=== PATIENT | female | born 1925 | race Caucasian/White ===

== ENCOUNTER 2016-08-12 16:51 | Inpatient (IN) ==
--- NOTE | 2016-08-12 17:09 | Emergency Department Note ---
START Narrative - START START: I examined this patient and my medical decision-making was reviewed with the CLOTH ROLL WINDER/PA/Advanced Practice Nurse/Resident Physician. I agree with the documented findings, disposition and treatment plan as described except to the extent set forth below. Patient emergency department with altered mental status. Per EMS report pastiness hallucinating. Recently treated for UTI on her third round of antibiotic which is Omnicef. No fever no cough. States she is a little short of breath but is unchanged from her baseline. Complaining of a rash on her face as well. On exam she is awake and alert oriented 2. Complains of small excoriations on her forehead. Plan. Altered mental status workup. Patient with UTI. Hallucinating. Will admit. Normal white count. She does not meet any SIRS criteria. She is not felt to be septic. Admitting. EKG paced at 70
--- NOTE | 2016-08-12 17:19 | Emergency Department Note ---
Disposition Clinical Impression: Encephalopathy acute UTI (urinary tract infection) Qualifiers: Urinary tract infection type: acute cystitis Hematuria presence: without hematuria Qualified Code(s): N30.00 - Acute cystitis without hematuria Disposition: Admitted As Inpatient Condition: Serious Time of Disposition: 18:47 Altered Mental Status HPI - General Chief Complaint: ED Altered Mental Status Time Seen by Provider: 08/12/16 17:04 Source: patient, EMS Limitations: altered mental status Nursing Notes Reviewed: Yes Vital Signs Reviewed: Yes - History of Present Illness HPI Narrative: 89-year-old female that presents with altered mental status, patient has had several episodes of altered mental status lately, has been fighting UTIs, with outpatient prescriptions for Keflex and Omnicef. Per her family she has been acting differently, she is having word finding issues and talking some confusion , she has no focal deficits or weakness, no slurred speech. They state that she is not Better, and requested she come back in. Has had intermittent chills. Patient has some nausea, she states she has no abdominal pain but feels some urinary distention and thinks that she is having trouble urinating as well, she endorses dysuria but denies hematuria. Pain. Weight changes. MD complaint: altered mental status Onset (ago): hour(s) Timing confirmed by: family member Pain Severity: mild Pain Scale: 3 Context: other (UTI) Associated symptoms: Reports: nausea/vomiting. Denies: chest pain, cough, diaphoresis, headaches, shortness of breath, syncope, weakness - Related Data Home Medications Medication Instructions Recorded Confirmed Clopidogrel [Plavix] 75 mg PO DAILY 08/18/15 10/10/15 Diclofenac Epolamine [Flector] 1 each TD BID 08/18/15 10/10/15 Diltiazem [Cardizem] 60 mg PO BID 08/18/15 10/10/15 Insulin ASPART [Novolog Flexpen] 2 - 12 unit SQ QID 08/18/15 10/10/15 Metoprolol [Lopressor] 12.5 mg PO BID 08/18/15 10/10/15 Nitroglycerin [Nitrostat] 0.4 mg SL AD PRN 08/18/15 10/10/15 Olmesartan Medoxomil [Benicar] 40 mg PO DAILY 08/18/15 10/10/15 Potassium Chloride [K-Tab ER] 20 meq PO DAILY 08/18/15 10/10/15 Pravastatin Sodium 10 mg PO HS 08/18/15 10/10/15 Ranolazine [Ranexa] 500 mg PO BID 08/18/15 10/10/15 Triamterene/HCTZ 37.5/25mg 1 each PO DAILY 08/18/15 10/10/15 [Dyazide] glyBURIDE [GlyBURIDE] 5 mg PO DAILY 08/18/15 10/10/15 Albuterol Neb [Proventil Neb] 2.5 mg IH TID MDD x 5 days. No 10/10/15 10/10/15 Start Date. Aspirin 81 mg PO DAILY 10/10/15 10/10/15 Docusate [Colace] 100 mg PO BID PRN 10/10/15 10/10/15 Insulin Glargine [Lantus] 20 unit SQ HS 10/10/15 10/10/15 Magnesium 250 mg PO DAILY 10/10/15 10/10/15 Sertraline [Zoloft] 25 mg PO BID 10/10/15 10/10/15 TraZODone 25 mg PO HS PRN 10/10/15 10/10/15 Previous Rx's Medication Instructions Recorded Guaifenesin [Guaifenesin ER] 600 mg PO Q12HR 7 Days 10/11/15 Mupirocin [Bactroban Oint] 1 appl TP BID #1 tube 07/25/16 Nystatin OINT [Mycostatin] 1 appl TP BID #30 g 07/25/16 Nystatin [Nystatin Suspension] 500,000 units PO QID #120 ml 07/25/16 Allergies Allergy/AdvReac Type Severity Reaction Status Date / Time codeine Allergy Rash Verified 08/23/15 12:25 adhesive tape AdvReac Redness of Verified 08/23/15 12:25 Skin budesonide [From Symbicort] AdvReac Shakiness Verified 08/23/15 12:25 Formoterol [From Symbicort] AdvReac Shakiness Verified 08/23/15 12:25 wheat AdvReac Blister Verified 08/23/15 12:25 All systems ED: reviewed and negative except as stated. Constitutional: Reports: weakness. Denies: fever, chills Cardiovascular: Denies: chest pain, palpitations Respiratory: Denies: cough, dyspnea Gastrointestinal: Reports: as per HPI, nausea, vomiting. Denies: abdominal pain Genitourinary: Reports: as per HPI, urgency, dysuria, frequency. Denies: hematuria Musculoskeletal: Denies: back pain Integumentary: Denies: rash Past Medical History - Past Medical History Attestation: Yes The following information was validated with the patient. Source: patient Medical history: Reports: atrial fibrillation, cancer, coronary artery disease, diabetes, hyperlipidemia, hypertension, osteoporosis Surgical history: Reports: cataract, colectomy, pacemaker/AICD, other ( cyberknife on lung nodules) Psychiatric history: Reports: anxiety POWER TRANSFORMER REPAIRER history: Reports: no POWER TRANSFORMER REPAIRER history - Social History Smoking Status: Never smoker Smokeless Tobacco Status: No Alcohol use: Reports: none Drug use: Reports: none Physical Exam Constitutional: Pleasantly confused 82-year-old female who is actually alert and oriented 3 with stable vital signs. HEENT: NCAT, sclera anicteric Neck: normal inspection, neck is supple, trachea midline Resp: normal chest inspection, CTA bilaterally, no resp distress CV: RRR, no m/g/r GI: normal inspection, Soft, NTND, BS present Back: normal inspection, no tenderness to palpation Neuro: A&O3, mild confusion. But no gross motor or sensory deficits bilaterally MSK: normal inspection, bilateral UE and LE with normal ROMt Skin: No rashes, skin warm, dry, intact - General Limitations: altered mental status General appearance: alert Course Course Narrative: 82-year-old female with altered mental state, multiple UTIs we will check urinalysis, CT scan of head also had abdominal CT to evaluate for obstructive uropathy, basic lab work with renal function, reassess. - Reevaluation(s) Reevaluation #1: Patient elevated white blood cell count of 22,000, we will start him. Ceftriaxone with some IV fluids, she does not meet any criteria for Sirs therefore does not have sepsis however does have altered mental state with UTI and I am concerned about worsening infection, added lactate, added blood culture #2 Time: 18:46 Vital Signs Temperature 98.3 F 08/12/16 16:56 Pulse Rate 70 08/12/16 16:56 Respiratory Rate 20 08/12/16 16:56 Blood Pressure 150/78 08/12/16 16:56 O2 Sat by Pulse Oximetry 99 08/12/16 16:56 Temperature 98.3 F 08/12/16 17:11 Pulse Rate 70 08/12/16 17:11 Respiratory Rate 20 08/12/16 17:11 Blood Pressure 150/78 08/12/16 17:11 O2 Sat by Pulse Oximetry 99 08/12/16 17:22 Oxygen Delivery Oxygen Delivery Room Air Altered Mental Status - Differential Diagnosis Likely: hypoglycemia, hyponatremia - Medical Records Medical records reviewed: Yes I reviewed the patient's medical records. - Lab Data Lab results reviewed: Yes I reviewed the patient's lab results. Result diagrams: 08/12/16 17:55 08/12/16 17:55 Lab Results 08/12/16 08/12/16 08/12/16 Range/Units 17:38 17:38 17:55 WBC 5.7 (4.3-11.1) K/mcL RBC 4.59 (3.82-4.97) M/mcL Hgb 11.5 (11.5-15.4) g/dL Hct 36.3 (35.3-44.9) % MCV 79.1 L (83.0-100.0) fL MCH 25.1 L (28.0-33.3) pg MCHC 31.7 (31.6-35.5) g/dL RDW 16.1 H (11.5-14.5) % Plt Count 200 (140-400) K/mcL MPV 9.9 (9.4-12.4) fL Immature Gran % 0.2 (0-4) % Seg Neutrophils % 57.7 % Lymphocytes % 30.6 % Monocytes % 9.1 % Eosinophils % 1.9 % Basophils % 0.5 % Neutrophils # 3.3 (1.6-8.9) K/mcL Lymphocytes # 1.7 (0.6-4.6) K/mcL Monocytes # 0.5 (0.0-1.3) K/mcL Eosinophils # 0.1 (0.0-0.6) K/mcL Basophils # 0.0 (0.0-0.2) K/mcL PT (9.4-12.1) Seconds INR APTT (26.0-36.0) Seconds Sodium (136-145) mEq/L Potassium (3.5-4.5) mEq/L Chloride (98-109) mEq/L Carbon Dioxide (19-29) mEq/L BUN (7-20) mg/dL Creatinine (0.57-1.11) mg/dL Est GFR ( Amer) (> 60) Est GFR (Non-Af Amer) (> 60) BUN/Creatinine Ratio (6-26) Glucose (70-99) mg/dL Calculated Osmolality (280-300) Lactic Acid (0.5-2.2) mmol/L Calcium (8.6-10.8) mg/dL Total Bilirubin (0.2-1.2) mg/dL Direct Bilirubin (0.0-0.5) mg/dL Indirect Bilirubin (0.0-1.2) mg/dL AST (5-34) Units/L ALT (0-55) Units/L Alkaline Phosphatase (38-126) Units/L Troponin I (0-0.03) ng/mL Serum Total Protein (6.0-8.3) g/dL Albumin (3.5-5.0) g/dL Globulin (2.4-3.5) g/dL Albumin/Globulin Ratio (1.1-2.2) Urine Color Yellow (Yellow) Urine Clarity Cloudy A (Clear) Urine pH 7.0 (5.0-8.0) pH Units Ur Specific [place] 1.016 (1.010-1.025) Urine Protein Negative (Neg-Trace) mg/dL Urine Glucose (UA) 500 H (Normal) mg/dL Urine Ketones Negative (Negative) mg/dL Urine Blood Trace H (Negative) Urine Nitrite Negative (Negative) Urine Bilirubin Negative (Negative) Urine Urobilinogen Normal (Normal) mg/dL Ur Leukocyte Esterase Large H (Negative) Urine Microscopic RBC 3-5 H (0-3) per hpf Urine Microscopic WBC TNTC H (0-3) per hpf Ur Squamous Epith Cells Many H (None-Few) per lpf Urine Bacteria Many H (None-Few) per hpf Hyaline Casts None Seen (None-Few) per lpf Ur Culture Indicated? YES A (NO) Urine Opiates Screen Negative (Csawam=926) ng/mL Ur Barbiturates Screen Negative (Dczult=807) ng/mL Ur Phencyclidine Scrn Negative (Cutoff=25) ng/mL Ur Amphetamines Screen Negative (Mntexm=3788) ng/mL U Benzodiazepines Scrn Negative (Ujilkp=511) ng/mL Urine Cocaine Screen Negative (Cutoff= 300) ng/mL U Marijuana (THC) Screen Negative (Cutoff = 50) ng/mL Ethyl Alcohol (0-10) mg/dL 08/12/16 08/12/16 08/12/16 Range/Units 17:55 17:55 17:55 WBC (4.3-11.1) K/mcL RBC (3.82-4.97) M/mcL Hgb (11.5-15.4) g/dL Hct (35.3-44.9) % MCV (83.0-100.0) fL MCH (28.0-33.3) pg MCHC (31.6-35.5) g/dL RDW (11.5-14.5) % Plt Count (140-400) K/mcL MPV (9.4-12.4) fL Immature Gran % (0-4) % Seg Neutrophils % % Lymphocytes % % Monocytes % % Eosinophils % % Basophils % % Neutrophils # (1.6-8.9) K/mcL Lymphocytes # (0.6-4.6) K/mcL Monocytes # (0.0-1.3) K/mcL Eosinophils # (0.0-0.6) K/mcL Basophils # (0.0-0.2) K/mcL PT 11.5 (9.4-12.1) Seconds INR 1.1 APTT 30.9 (26.0-36.0) Seconds Sodium 133 L (136-145) mEq/L Potassium 3.8 (3.5-4.5) mEq/L Chloride 97 L (98-109) mEq/L Carbon Dioxide 30 H (19-29) mEq/L BUN 13 (7-20) mg/dL Creatinine 0.89 (0.57-1.11) mg/dL Est GFR ( Amer) > 60 (> 60) Est GFR (Non-Af Amer) 60 (> 60) BUN/Creatinine Ratio 15 (6-26) Glucose 188 H (70-99) mg/dL Calculated Osmolality 281 (280-300) Lactic Acid (0.5-2.2) mmol/L Calcium 9.9 (8.6-10.8) mg/dL Total Bilirubin 0.6 (0.2-1.2) mg/dL Direct Bilirubin 0.2 (0.0-0.5) mg/dL Indirect Bilirubin 0.4 (0.0-1.2) mg/dL AST 19 (5-34) Units/L ALT 14 (0-55) Units/L Alkaline Phosphatase 74 (38-126) Units/L Troponin I 0.00 (0-0.03) ng/mL Serum Total Protein 6.9 (6.0-8.3) g/dL Albumin 3.5 (3.5-5.0) g/dL Globulin 3.4 (2.4-3.5) g/dL Albumin/Globulin Ratio 1.0 L (1.1-2.2) Urine Color (Yellow) Urine Clarity (Clear) Urine pH (5.0-8.0) pH Units Ur Specific [place] (1.010-1.025) Urine Protein (Neg-Trace) mg/dL Urine Glucose (UA) (Normal) mg/dL Urine Ketones (Negative) mg/dL Urine Blood (Negative) Urine Nitrite (Negative) Urine Bilirubin (Negative) Urine Urobilinogen (Normal) mg/dL Ur Leukocyte Esterase (Negative) Urine Microscopic RBC (0-3) per hpf Urine Microscopic WBC (0-3) per hpf Ur Squamous Epith Cells (None-Few) per lpf Urine Bacteria (None-Few) per hpf Hyaline Casts (None-Few) per lpf Ur Culture Indicated? (NO) Urine Opiates Screen (Rfltxc=639) ng/mL Ur Barbiturates Screen (Wgfnaj=769) ng/mL Ur Phencyclidine Scrn (Cutoff=25) ng/mL Ur Amphetamines Screen (Uefyzf=9174) ng/mL U Benzodiazepines Scrn (Naqasu=543) ng/mL Urine Cocaine Screen (Cutoff= 300) ng/mL U Marijuana (THC) Screen (Cutoff = 50) ng/mL Ethyl Alcohol < 10 (0-10) mg/dL 08/12/16 Range/Units 17:55 WBC (4.3-11.1) K/mcL RBC (3.82-4.97) M/mcL Hgb (11.5-15.4) g/dL Hct (35.3-44.9) % MCV (83.0-100.0) fL MCH (28.0-33.3) pg MCHC (31.6-35.5) g/dL RDW (11.5-14.5) % Plt Count (140-400) K/mcL MPV (9.4-12.4) fL Immature Gran % (0-4) % Seg Neutrophils % % Lymphocytes % % Monocytes % % Eosinophils % % Basophils % % Neutrophils # (1.6-8.9) K/mcL Lymphocytes # (0.6-4.6) K/mcL Monocytes # (0.0-1.3) K/mcL Eosinophils # (0.0-0.6) K/mcL Basophils # (0.0-0.2) K/mcL PT (9.4-12.1) Seconds INR APTT (26.0-36.0) Seconds Sodium (136-145) mEq/L Potassium (3.5-4.5) mEq/L Chloride (98-109) mEq/L Carbon Dioxide (19-29) mEq/L BUN (7-20) mg/dL Creatinine (0.57-1.11) mg/dL Est GFR ( Amer) (> 60) Est GFR (Non-Af Amer) (> 60) BUN/Creatinine Ratio (6-26) Glucose (70-99) mg/dL Calculated Osmolality (280-300) Lactic Acid 0.8 (0.5-2.2) mmol/L Calcium (8.6-10.8) mg/dL Total Bilirubin (0.2-1.2) mg/dL Direct Bilirubin (0.0-0.5) mg/dL Indirect Bilirubin (0.0-1.2) mg/dL AST (5-34) Units/L ALT (0-55) Units/L Alkaline Phosphatase (38-126) Units/L Troponin I (0-0.03) ng/mL Serum Total Protein (6.0-8.3) g/dL Albumin (3.5-5.0) g/dL Globulin (2.4-3.5) g/dL Albumin/Globulin Ratio (1.1-2.2) Urine Color (Yellow) Urine Clarity (Clear) Urine pH (5.0-8.0) pH Units Ur Specific [place] (1.010-1.025) Urine Protein (Neg-Trace) mg/dL Urine Glucose (UA) (Normal) mg/dL Urine Ketones (Negative) mg/dL Urine Blood (Negative) Urine Nitrite (Negative) Urine Bilirubin (Negative) Urine Urobilinogen (Normal) mg/dL Ur Leukocyte Esterase (Negative) Urine Microscopic RBC (0-3) per hpf Urine Microscopic WBC (0-3) per hpf Ur Squamous Epith Cells (None-Few) per lpf Urine Bacteria (None-Few) per hpf Hyaline Casts (None-Few) per lpf Ur Culture Indicated? (NO) Urine Opiates Screen (Uggfrf=155) ng/mL Ur Barbiturates Screen (Tjtzqg=378) ng/mL Ur Phencyclidine Scrn (Cutoff=25) ng/mL Ur Amphetamines Screen (Qtbrwz=0219) ng/mL U Benzodiazepines Scrn (Fdxpss=864) ng/mL Urine Cocaine Screen (Cutoff= 300) ng/mL U Marijuana (THC) Screen (Cutoff = 50) ng/mL Ethyl Alcohol (0-10) mg/dL - Radiology Data Radiology results reviewed: Yes I reviewed the patient's radiology results. - EKG Data EKG attestation: Yes I reviewed and interpreted this EKG. Rhythm: other (History of them 70 bpm, no ST segment elevations or depressions, left bundle-branch block) [place]/QRS: LBBB Interpretation: no acute changes - Core Measures AMI Core Measures Followed: No
[2016-08-12 17:50] LABS: Bilirubin,Urine Negative (Negative); Blood,Urine Trace (Negative); Clarity,Urine Cloudy (Clear); Color,Urine Yellow (Yellow); Glucose,Urine (UA) 500 mg/dL (Normal); Ketones,Urine Negative (Negative); Leukocyte Esterase,Urine Large (Negative); Nitrite,Urine Negative (Negative); Protein,Urine Negative (Neg-Trace); Specific Gravity,Urine 1.016 (1.010-1.025); Urobilinogen,Urine Normal (Normal)
[2016-08-12 17:52] LABS: Bacteria,Urine Many per hpf (None-Few); Hyaline Casts,Urine None Seen per lpf (None-Few); Squamous Epithelial Cell,Urine Many per lpf (None-Few); WBC,Urine TNTC per hpf (0-3)
[2016-08-12 17:57] LABS: Amphetamine Screen,Urine Negative ng/mL (Cutoff=1000); Benzodiazepines Screen,Urine Negative ng/mL (Cutoff=200); Cannabinoid Screen,Urine Negative ng/mL (Cutoff = 50); Cocaine Screen,Urine Negative ng/mL (Cutoff= 300); Opiate Screen,Urine Negative ng/mL (Cutoff=300); Phencyclidine Screen,Urine Negative ng/mL (Cutoff=25)
[2016-08-12 18:04] LABS: Basophils % 0.5 %; Eosinophils # 0.1 K/mcL (0.0-0.6); Eosinophils % 1.9 %; Hematocrit 36.3 % (35.3-44.9); Hemoglobin 11.5 g/dL (11.5-15.4); Immature Granulocytes % 0.2 % (0-4); Lymphocytes # 1.7 K/mcL (0.6-4.6); Lymphocytes % 30.6 %; Mean Corpuscular HGB Conc 31.7 g/dL (31.6-35.5); Mean Corpuscular Hemoglobin 25.1 pg (28.0-33.3); Mean Corpuscular Volume 79.1 fL (83.0-100.0); Mean Platelet Volume 9.9 fL (9.4-12.4); Monocytes # 0.5 K/mcL (0.0-1.3); Monocytes % 9.1 %; Neutrophils # 3.3 K/mcL (1.6-8.9); Platelet Count 200 K/mcL (140-400); Red Blood Count 4.59 M/mcL (3.82-4.97); Red Cell Distribution Width 16.1 % (11.5-14.5); Segmented Neutrophils % 57.7 %
[2016-08-12 18:10] LABS: INR 1.1; Prothrombin Time 11.5 Seconds (9.4-12.1)
[2016-08-12 18:12] LABS: Activated Partial Thrombo Time 30.9 Seconds (26.0-36.0)
[2016-08-12 18:17] LABS: Alanine Aminotransferase 14 Units/L (0-55); Albumin 3.5 g/dL (3.5-5.0); Alkaline Phosphatase 74 Units/L (38-126); Aspartate Amino Transferase 19 Units/L (5-34); BUN/Creatinine Ratio 15 (6-26); Bilirubin,Direct 0.2 mg/dL (0.0-0.5); Bilirubin,Indirect 0.4 mg/dL (0.0-1.2); Bilirubin,Total 0.6 mg/dL (0.2-1.2); Blood Urea Nitrogen 13 mg/dL (7-20); Calcium 9.9 mg/dL (8.6-10.8); Carbon Dioxide 30 mEq/L (19-29); Chloride 97 mEq/L (98-109); Globulin 3.4 g/dL (2.4-3.5); Glucose 188 mg/dL (70-99); Osmolality,Calculated 281 (280-300); Potassium 3.8 mEq/L (3.5-4.5); Sodium 133 mEq/L (136-145); Total Protein 6.9 g/dL (6.0-8.3); eGFR For African Americans > 60 (> 60); eGFR For Non-African Americans 60 (> 60)
[2016-08-12 18:21] LABS: Ethanol < 10 mg/dL (0-10)
[2016-08-12] MEDS ORDERED: 0.9 % Sodium Chloride 1,000 ML IVC ONE (18:22)
[2016-08-12 18:24] LABS: Barbiturate Screen,Urine Negative ng/mL (Cutoff=200)
[2016-08-12] MEDS ORDERED: Naloxone 0.4 MG/ML INJ IVP PRN (22:23)
[2016-08-12] MEDS ORDERED: *HR* Dextrose 50 % in Water (Syg) 50 ML SYRINGE IVP PRN (22:24)
[2016-08-12] MEDS ORDERED: Dextrose Gel 15 GM PO PRN ×2 (22:24)
[2016-08-12] MEDS ORDERED: D5% in Water 1,000 ML IVC PRN (22:24)
[2016-08-12] MEDS ORDERED: Nitroglycerin 0.4 MG TAB.SUBL SL PRN (22:25)
[2016-08-12] MEDS ORDERED: INSULIN GLARGINE 22 UNIT SQ SCH (22:30)
--- NOTE | 2016-08-12 22:35 | Internal Med History&Physical ---
Date of Encounter: 08/12/16 Time of Encounter: 22:35 Assessment and Plan (1) UTI (urinary tract infection) Current visit: Yes Status: Acute With failed outpatient therapy. Recent urine culture showed Morganella morganii. She does not seem to respond to outpatient therapy. Will start emperically on ceftriaxone and repeat urine cultures requested in the ER. Qualifiers: Urinary tract infection type: acute cystitis Hematuria presence: without hematuria Qualified Code(s): N30.00 - Acute cystitis without hematuria (2) Encephalopathy acute Current visit: Yes Status: Acute Could be related to UTI. Pt has h/o lung cancer - will need to exclude metastatic disease causing encephalopathy / confusion. Will request for MRI of the brain. (3) Diabetes mellitus, type II, insulin dependent Current visit: Yes Status: Chronic Start sliding scale insulin. Pt does not want to comply with diabetic diet (4) Hypertension Current visit: Yes Status: Chronic continue home antihypertensive medications Qualifiers: Hypertension type: essential hypertension Qualified Code(s): I10 - Essential (primary) hypertension (5) Lung cancer Current visit: Yes Status: Chronic Will obtain MRI of the brain, to exclude metastatic disease causing encephalopathy Qualifiers: Laterality: right Lung location: unspecified part of lung Qualified Code( s): C34.91 - Malignant neoplasm of unspecified part of right bronchus or lung (6) CAD (coronary artery disease) Current visit: Yes Status: Chronic Continue home medicaitons Qualifiers: Coronary Disease-Associated Artery/Lesion type: unspecified vessel or lesion type [place] vs. transplanted heart: [place] heart Associated angina: without angina Qualified Code(s): I25.10 - Atherosclerotic heart disease of [place] coronary artery without angina pectoris (7) DVT prophylaxis Current visit: Yes Status: Acute subcutaneous heparin Internal Medicine - H&P: HPI Chief complaint: confusion Admitted From: Emergency Dept Plans for Post Hospital Care: Home History of present illness: Ms. Gaines is a 89 year old female With h/o atrial fibrillation, coronary artery disease, diabetes mellitus, hypertension. She recently diagnosed to have UTI and was started on Keflex / omnicef. Pts daughter reports that the pt was confused and thought that she has maggots on her face and was picking the skin. She was also forgetful. Hence the daughter was concerned and brought to the ER for evaluation. Patient/daughter report feeling better since the antibiotics in the emergency department. Patient / daughter denies slurred speech, weakness of the extremities, chest pain, shortness of breath, cough, fever, chills, nausea, vomiting, abdominal pain, dysuria, hematuria, change in bowels. She was evaluated in the emergency department and was noted to have abnormal urinalysis. She was given ceftriaxone IV and admitted to the hospitalist service for further workup and management. Past Med Surg Social Fam HX - Past Medical History Medical history: atrial fibrillation, cancer, coronary artery disease, diabetes , hyperlipidemia, hypertension, osteoporosis Psychiatric history: anxiety - Past Surgical History Surgical History: cataract, colectomy, pacemaker/AICD, other (cyberknife on lung nodules) - Social History Smoking Status: Never smoker Smokeless Tobacco Status: No Alcohol use: none Drug use: none - Family History Father Living Status: Hx Family Cardiac Disorders: Yes Hx Family Cancer: Yes Hx Family Endocrine Disorder: Yes (DM) Mother Living Status: Hx Family Cancer: Yes Hx Family Endocrine Disorder: Yes Internal Medicine - H&P: Meds Clopidogrel [Plavix] 75 mg PO DAILY 08/18/15 [History] Diltiazem [Cardizem] 60 mg PO BID 08/18/15 [History] Insulin ASPART [Novolog Flexpen] 2 - 12 unit SQ QID 08/18/15 [History] Metoprolol [Lopressor] 25 mg PO DAILY 08/18/15 [History] Nitroglycerin [Nitrostat] 0.4 mg SL AD PRN 08/18/15 [History] Olmesartan Medoxomil [Benicar] 40 mg PO DAILY 08/18/15 [History] Potassium Chloride [K-Tab ER] 20 meq PO DAILY 08/18/15 [History] Pravastatin Sodium 10 mg PO HS 08/18/15 [History] Ranolazine [Ranexa] 500 mg PO BID 08/18/15 [History] Triamterene/HCTZ 37.5/25mg [Dyazide] 1 each PO DAILY 08/18/15 [History] Albuterol Neb [Proventil Neb] 2.5 mg IH TID MDD x 5 days. No Start Date. [History] Aspirin 81 mg PO DAILY 10/10/15 [History] Docusate [Colace] 100 mg PO BID PRN 10/10/15 [History] Insulin Glargine [Lantus] 22 unit SQ HS 10/10/15 [History] Magnesium 250 mg PO DAILY 10/10/15 [History] Mupirocin [Bactroban Oint] 1 appl TP BID #1 tube 07/25/16 [Rx] Nystatin OINT [Mycostatin] 1 appl TP BID #30 g 07/25/16 [Rx] Nystatin [Nystatin Suspension] 500,000 units PO QID #120 ml 07/25/16 [Rx] Cefdinir [Omnicef] 300 mg PO BID 08/12/16 [History] Sertraline [Zoloft] 50 mg PO BID 08/12/16 [History] Allergies codeine Allergy (Verified 08/12/16 19:17) Rash adhesive tape Adverse Reaction (Verified 08/12/16 19:17) Redness of Skin budesonide [From Symbicort] Adverse Reaction (Verified 08/12/16 19:17) Shakiness Formoterol [From Symbicort] Adverse Reaction (Verified 08/12/16 19:17) Shakiness wheat Adverse Reaction (Verified 08/12/16 19:17) Blister All Systems PM: A 10-system review of systems was performed and is negative for pertinent findings except as documented above in the HPI. - Constitutional Vitals: Temp Pulse Resp BP Pulse Ox 97.7 F 76 15 163/82 99 08/12/16 20:50 08/12/16 20:50 08/12/16 20:50 08/12/16 20:50 08/12/16 20:50 Exam: General: Not in acute distress at the time of my evaluation HEENT: Oral mucosa is moist. No conjunctival palor or scleral icterus Neck: No obvious neck swellings Lungs: Clear to auscultation Cardiac: Regular rate and rhythm. No significant murmurs Abdomen: Soft, non tender. Bowel sounds present Genitourinary: No moise catheter Neurological: Alert and following instructions. No gross localizing deficits Psych: Not aggressive or agitated Extremities: B/L leg edema present Skin: No generalized rash Internal Med - H&P Results - Labs CBC & Chem 7: 08/12/16 17:55 08/12/16 17:55 - EKG Data -: EKG Interpreted by Myself - EKG Data EKG comments: Paced rhythm 08/13/16 05:51 - Impressions ITS Impressions Chest X-Ray 08/12/16 17:05 IMPRESSION: No acute disease. Surgical changes overlying the right lung with a a rounded mass again noted in that region. These findings are stable compared prior studies D/ / Darren Reyes MD / Darren Reyes MD Interpreting Provider: Darren Reyes MD Head CT 08/12/16 17:05 IMPRESSION: 1. No acute intracranial abnormality. D/ / Nicola Sandra MD / Nicola Sandra MD Interpreting Provider: Nicola Sandra MD Abdomen/Pelvis CT 08/12/16 17:18 IMPRESSION: No acute process D/ / Darren Reyes MD / Darren Reyes MD Interpreting Provider: Darren Reyes MD
[2016-08-12] MEDS: Ranolazine 500 MG TAB.ER.12H PO SCH (23:18)
[2016-08-12] MEDS: Insulin LISPRO 300 UNITS/3 ML VIAL SQ SCH (23:19)
[2016-08-13] MEDS: Insulin DETEMIR 100 UNIT/ML X5UNITS SQ SCH ×2 (00:05→20:54)
[2016-08-13] MEDS: Albuterol 2.5 MG/3 ML NEBULIZER IH SCH ×3 (02:14→16:05)
[2016-08-13] MEDS: *HR* Heparin 5,000 UNIT/ML VIAL SQ SCH ×3 (07:01→21:17)
[2016-08-13] MEDS: Insulin LISPRO 300 UNITS/3 ML VIAL SQ SCH ×4 (07:10→20:54)
[2016-08-13 08:01] LABS: BUN/Creatinine Ratio 13 (6-26); Blood Urea Nitrogen 11 mg/dL (7-20); Calcium 9.6 mg/dL (8.6-10.8); Carbon Dioxide 33 mEq/L (19-29); Chloride 104 mEq/L (98-109); Glucose 83 mg/dL (70-99); Magnesium 1.7 mg/dL (1.6-2.6); Osmolality,Calculated 291 (280-300); Potassium 4.1 mEq/L (3.5-4.5); Sodium 141 mEq/L (136-145); eGFR For African Americans > 60 (> 60); eGFR For Non-African Americans > 60 (> 60)
[2016-08-13 09:06] LABS: Basophils % 0.4 %; Eosinophils # 0.1 K/mcL (0.0-0.6); Eosinophils % 1.7 %; Hematocrit 34.8 % (35.3-44.9); Hemoglobin 10.7 g/dL (11.5-15.4); Immature Granulocytes % 0.2 % (0-4); Lymphocytes # 1.5 K/mcL (0.6-4.6); Lymphocytes % 29.5 %; Mean Corpuscular HGB Conc 30.7 g/dL (31.6-35.5); Mean Corpuscular Hemoglobin 24.5 pg (28.0-33.3); Mean Corpuscular Volume 79.8 fL (83.0-100.0); Mean Platelet Volume 10.9 fL (9.4-12.4); Monocytes # 0.5 K/mcL (0.0-1.3); Monocytes % 9.4 %; Neutrophils # 3.1 K/mcL (1.6-8.9); Platelet Count 157 K/mcL (140-400); Red Blood Count 4.36 M/mcL (3.82-4.97); Segmented Neutrophils % 58.8 %
[2016-08-13] MEDS: Magnesium Oxide 400 MG TABLET PO SCH (09:16)
[2016-08-13] MEDS: Valsartan 160 MG TABLET PO SCH (09:16)
[2016-08-13] MEDS: Aspirin 81 MG TAB.CHEW PO SCH (09:16)
[2016-08-13] MEDS: Nystatin SUSP 5 ML UD.LIQ PO SCH ×4 (09:17→21:20)
[2016-08-13] MEDS: Ranolazine 500 MG TAB.ER.12H PO SCH ×2 (09:17→20:52)
[2016-08-13] MEDS: Lactobacillus 1 EACH CAP.SPRINK PO SCH ×2 (09:19→20:53)
--- NOTE | 2016-08-13 16:27 | Internal Med Progress Note ---
Date of Encounter: 08/13/16 Time of Encounter: 09:30 - Assessment and plan (1) Encephalopathy acute Current Visit: Yes Status: Resolved Assessment and plan: Patient is alert and oriented 3 during my interaction with her. Suspect secondary to urinary tract infection. In review of her chart, she had a urine culture that was positive for Morganella morganii on 08/09/15 that had multiple resistances to by mouth medications. This infection was sensitive to cephalosporin so the patient was appropriately started on cefdinir but she continues to endorse dysuria and continues to have altered mental status despite taking it as prescribed. We will continue ceftriaxone and add vancomycin for gram-positive coverage as well. Urine culture is pending. Head CT negative. Abdominal CT unremarkable for acute processes. Chest x-ray negative. Unable to obtain an MRI secondary to her pacemaker. Tox screen negative. ITS Impressions Chest X-Ray 08/12/16 17:05 IMPRESSION: No acute disease. Surgical changes overlying the right lung with a a rounded mass again noted in that region. These findings are stable compared prior studies D/ / Darren Reyes MD / Darren Reyes MD Interpreting Provider: Darren Reyes MD Head CT 08/12/16 17:05 IMPRESSION: 1. No acute intracranial abnormality. D/ / Nicola Sandra MD / Nicola Sandra MD Interpreting Provider: Nicola Sandra MD Abdomen/Pelvis CT 08/12/16 17:18 IMPRESSION: No acute process D/ / Darren Reyes MD / Darren Reyes MD Interpreting Provider: Darren Reyes MD (2) UTI (urinary tract infection) Current Visit: Yes Status: Acute Assessment and plan: See prior note for acute encephalopathy Qualifiers: Urinary tract infection type: acute cystitis Hematuria presence: without hematuria Qualified Code(s): N30.00 - Acute cystitis without hematuria (3) Diabetes mellitus, type II, insulin dependent Current Visit: Yes Status: Chronic Assessment and plan: Appears controlled with a recent A1c of 6.9%. Continue sliding scale while admitted. (4) Hypertension Current Visit: Yes Status: Chronic Assessment and plan: Hypertensive upon arrival, blood pressure now controlled. We will continue to trend and adjust medications as indicated. Qualifiers: Hypertension type: essential hypertension Qualified Code(s): I10 - Essential (primary) hypertension (5) Anxiety Current Visit: No Status: Chronic (6) Lung cancer Current Visit: Yes Status: Chronic Assessment and plan: Unable to obtain MRI 2/2 pacemaker. Low suspicion for metastasis- will continue to monitor. Qualifiers: Laterality: right Lung location: unspecified part of lung Qualified Code( s): C34.91 - Malignant neoplasm of unspecified part of right bronchus or lung (7) CAD (coronary artery disease) Current Visit: Yes Status: Chronic Assessment and plan: patient denies chest pain or shortness of breath Qualifiers: Coronary Disease-Associated Artery/Lesion type: unspecified vessel or lesion type [place] vs. transplanted heart: [place] heart Associated angina: without angina Qualified Code(s): I25.10 - Atherosclerotic heart disease of [place] coronary artery without angina pectoris (8) DVT prophylaxis Current Visit: No Status: Acute Assessment and plan: Subcutaneous heparin - Subjective Interval history: Patient seen and examined. On examination, patient sitting upright on the side of her bed. Patient denies pain or nausea at this time. Although she states that she feels "rough." She states that she ate her breakfast and slept well last night but states she just feels "rough" but is unable to elaborate. - Constitutional Vitals: Temp Pulse Resp BP Pulse Ox 97.5 F L 70 16 124/73 99 08/13/16 16:06 08/13/16 16:06 08/13/16 16:06 08/13/16 16:06 08/13/16 16:06 General appearance: Present: A&O X 3, pleasant, no acute distress, answers questions appropriately - Head Head exam: Present: atraumatic, normocephalic - Eye Eye exam: Present: PERRL, conjuntiva pink, sclera anicteric Pupils: Present: PERRL - Neck Neck exam general surgery: Present: supple, trachea midline. Absent: lymphadenopathy - Respiratory Respiratory exam: Present: CTAB. Absent: accessory muscle use, rales, respiratory distress, rhonchi, wheezes - Cardiovascular Cardiovascular exam: Present: RRR, +S1, +S2. Absent: diastolic murmur, gallop, rubs, systolic murmur - GI/Abdominal GI/Abdominal exam: Present: normal bowel sounds, soft, no peritoneal signs. Absent: distended, tenderness - Extremities Exam Extremities exam: Present: warm, radial pulses palpable and symetrical. Absent : calf tenderness, cyanotic, pedal edema - Neurological Exam Neurological exam: Present: alert, CN II-XII intact, oriented X3, no focal deficits, strengths equal and symetr throughout. Absent: pronater drift, facial droop, speech deficit - Skin Skin exam: Present: dry, intact, pallor, warm Internal Medicine: Result - Labs CBC & Chem 7: 08/13/16 07:29 08/13/16 07:29 Labs: Short CBC 08/13/16 Range/Units 07:29 WBC 5.2 (4.3-11.1) K/mcL Hgb 10.7 L (11.5-15.4) g/dL Hct 34.8 L (35.3-44.9) % Plt Count 157 (140-400) K/mcL Neutrophils # 3.1 (1.6-8.9) K/mcL BMP 08/13/16 07:29 Sodium 141 D Potassium 4.1 Chloride 104 Carbon Dioxide 33 H BUN 11 Creatinine 0.86 Glucose 83 Calcium 9.6 - ABG Interpretation ABG results: PT/INR, D-dimer PT 11.5 Seconds (9.4-12.1) 08/12/16 17:55 Consult Discharge Plan - Plan Referrals: Laurita Sears MD [Primary Care Provider] - 08/19/16 1:30 pm
[2016-08-13] MEDS ORDERED: Vancomycin 1,250 MG in D5% in Water 250 ML IVPB SCH (17:00)
[2016-08-13] MEDS: Vancomycin 1,250 MG in D5% in Water 250 ML IVPB SCH (18:40)
[2016-08-14 04:53] LABS: Basophils % 0.5 %; Eosinophils # 0.2 K/mcL (0.0-0.6); Eosinophils % 2.3 %; Hematocrit 36.6 % (35.3-44.9); Hemoglobin 11.6 g/dL (11.5-15.4); Immature Granulocytes % 0.1 % (0-4); Lymphocytes # 2.7 K/mcL (0.6-4.6); Lymphocytes % 34.7 %; Mean Corpuscular HGB Conc 31.7 g/dL (31.6-35.5); Mean Corpuscular Hemoglobin 25.4 pg (28.0-33.3); Mean Corpuscular Volume 80.1 fL (83.0-100.0); Mean Platelet Volume 11.3 fL (9.4-12.4); Monocytes # 0.8 K/mcL (0.0-1.3); Monocytes % 9.8 %; Neutrophils # 4.1 K/mcL (1.6-8.9); Platelet Count 194 K/mcL (140-400); Red Blood Count 4.57 M/mcL (3.82-4.97); Red Cell Distribution Width 16.3 % (11.5-14.5); Segmented Neutrophils % 52.6 %
[2016-08-14 05:24] LABS: BUN/Creatinine Ratio 13 (6-26); Blood Urea Nitrogen 11 mg/dL (7-20); Calcium 9.4 mg/dL (8.6-10.8); Carbon Dioxide 26 mEq/L (19-29); Chloride 100 mEq/L (98-109); Glucose 112 mg/dL (70-99); Osmolality,Calculated 284 (280-300); Potassium 3.5 mEq/L (3.5-4.5); Sodium 137 mEq/L (136-145); eGFR For African Americans > 60 (> 60); eGFR For Non-African Americans > 60 (> 60)
[2016-08-14] MEDS: *HR* Heparin 5,000 UNIT/ML VIAL SQ SCH ×2 (06:00→13:55)
[2016-08-14] MEDS: Vancomycin 1,250 MG in D5% in Water 250 ML IVPB SCH ×2 (06:01→17:59)
[2016-08-14] MEDS: Insulin LISPRO 300 UNITS/3 ML VIAL SQ SCH ×4 (07:06→17:52)
--- NOTE | 2016-08-14 08:29 | Electrocardiograph Report ---
[place] [id number] Test Date: 2016-08-12 Pat Name: Kayla Milford Department: 105 Room: 3B11 Gender: F Fructose Loader: MSC : 1925 Requested By: Meron See Order Number: [id number] Reading MD: Jelani Weaver MD Measurements Intervals [place] Rate: 70 P: 184 NV: 148 QRS: -76 QRSD: 158 T: 98 QT: 451 QTc: 471 Interpretive Statements ELECTRONIC ATRIAL PACEMAKER ELECTRONIC VENTRICULAR PACEMAKER Electronically Signed On 08-14-2016 8:27:25 EDT by Jelani Weaver MD
[2016-08-14] MEDS: Magnesium Oxide 400 MG TABLET PO SCH (09:14)
[2016-08-14] MEDS: Lactobacillus 1 EACH CAP.SPRINK PO SCH ×2 (09:14→20:10)
[2016-08-14] MEDS: Ranolazine 500 MG TAB.ER.12H PO SCH ×2 (09:14→20:09)
[2016-08-14] MEDS: Aspirin 81 MG TAB.CHEW PO SCH (09:15)
[2016-08-14] MEDS: Valsartan 160 MG TABLET PO SCH (09:15)
[2016-08-14] MEDS: Nystatin SUSP 5 ML UD.LIQ PO SCH ×4 (09:16→20:14)
--- NOTE | 2016-08-14 10:39 | Internal Med Progress Note ---
Date of Encounter: 08/14/16 Time of Encounter: 09:00 - Assessment and plan (1) Encephalopathy acute Current Visit: Yes Status: Resolved Assessment and plan: Patient remains alert and oriented 3. She is, however, insisting that she is pulling "worms" out of her scalp and her eyebrows. There are no worms or other foreign bodies present on examination. Patient pulled out an eyebrow, then swore it was a worm. Her daughter is at the bedside and states that the patient has been picking more lately at her face and her hair. Suspect this could be secondary to the patient's ongoing urinary infection, will monitor. She is able to answer all orientation questions. Awaiting urine culture results. Preliminary culture with gram-positive cocci, continue ceftriaxone and vancomycin with sensitivities pending. Head CT negative. Abdominal CT unremarkable for acute processes. Chest x-ray negative. Unable to obtain an MRI secondary to her pacemaker. Tox screen negative. We will continue to monitor her picking and whether or not she is still seeing worms as we clear her urinary infection. ITS Impressions Chest X-Ray 08/12/16 17:05 IMPRESSION: No acute disease. Surgical changes overlying the right lung with a a rounded mass again noted in that region. These findings are stable compared prior studies D/ / Darren Reyes MD / Darren Reyes MD Interpreting Provider: Darren Reyes MD Head CT 08/12/16 17:05 IMPRESSION: 1. No acute intracranial abnormality. D/ / Nicola Sandra MD / Nicola Sandra MD Interpreting Provider: Nicola Sandra MD Abdomen/Pelvis CT 08/12/16 17:18 IMPRESSION: No acute process D/ / Darren Reyes MD / Darren Reyes MD Interpreting Provider: Darren Reyes MD (2) Picking own skin Current Visit: Yes Status: Acute Assessment and plan: See prior note for acute encephalopathy (3) UTI (urinary tract infection) Current Visit: Yes Status: Acute Assessment and plan: See prior note for acute encephalopathy Qualifiers: Urinary tract infection type: acute cystitis Hematuria presence: without hematuria Qualified Code(s): N30.00 - Acute cystitis without hematuria (4) Diabetes mellitus, type II, insulin dependent Current Visit: Yes Status: Chronic Assessment and plan: Appears controlled with a recent A1c of 6.9%. Continue sliding scale while admitted. Of note, patient states she was upset that she received both types of insulin last night together so her at bedtime dose of lispro has been stopped. She claimed that her sugars were "bottomed out" however the lowest recorded glucose is 72 which is still normal but lower than her baseline. Patient is also insistent that she takes her insulin after her meals and this is the source of a lot of distraught for this patient so I will allow for her nursing staff to give her her insulin after her meals at the patient's request. (5) Hypertension Current Visit: Yes Status: Chronic Assessment and plan: Hypertensive upon arrival, blood pressure now controlled. We will continue to trend and adjust medications as indicated. Qualifiers: Hypertension type: essential hypertension Qualified Code(s): I10 - Essential (primary) hypertension (6) Anxiety Current Visit: No Status: Chronic (7) Lung cancer Current Visit: Yes Status: Chronic Assessment and plan: Unable to obtain MRI 2/2 pacemaker. Low suspicion for metastasis- will continue to monitor. Patient denies shortness of breath above her norm. Qualifiers: Laterality: right Lung location: unspecified part of lung Qualified Code( s): C34.91 - Malignant neoplasm of unspecified part of right bronchus or lung (8) CAD (coronary artery disease) Current Visit: Yes Status: Chronic Assessment and plan: patient denies chest pain or shortness of breath Qualifiers: Coronary Disease-Associated Artery/Lesion type: unspecified vessel or lesion type [place] vs. transplanted heart: [place] heart Associated angina: without angina Qualified Code(s): I25.10 - Atherosclerotic heart disease of [place] coronary artery without angina pectoris (9) DVT prophylaxis Current Visit: No Status: Acute Assessment and plan: Subcutaneous heparin - Subjective Interval history: Patient seen and examined. On examination, patient sitting upright on the side of her bed finishing her breakfast and conversing with her daughter. Patient denies pain or nausea at this time. She is upset about getting both of her insulins at the same time last night. She is also upset that she has been getting her insulin before her meals and insists upon taking her insulin after her meals. She is also complaining of feeling lightheaded and dizzy. She states she slept well and ate her breakfast. - Constitutional Vitals: Temp Pulse Resp BP Pulse Ox 98.1 F 70 17 118/68 99 08/14/16 07:16 08/14/16 07:16 08/14/16 07:16 08/14/16 07:16 08/14/16 07:16 General appearance: Present: A&O X 3, no acute distress, answers questions appropriately - Head Head exam: Present: atraumatic, normocephalic - Eye Eye exam: Present: PERRL, conjuntiva pink, sclera anicteric Pupils: Present: PERRL - Neck Neck exam general surgery: Present: supple, trachea midline. Absent: lymphadenopathy - Respiratory Respiratory exam: Present: decreased breath sounds. Absent: accessory muscle use, rales, respiratory distress, rhonchi, wheezes - Cardiovascular Cardiovascular exam: Present: RRR, +S1, +S2. Absent: diastolic murmur, gallop, rubs, systolic murmur - GI/Abdominal GI/Abdominal exam: Present: normal bowel sounds, soft, no peritoneal signs. Absent: distended, tenderness - Extremities Exam Extremities exam: Present: warm, radial pulses palpable and symetrical. Absent : calf tenderness, cyanotic, pedal edema - Neurological Exam Neurological exam: Present: alert, CN II-XII intact, oriented X3, no focal deficits, strengths equal and symetr throughout. Absent: pronater drift, facial droop, speech deficit - Psychiatric Psychiatric exam: Present: agitated - Expanded Psychiatric Exam Focused psych exam: Present: delusional, perseverating - Skin Skin exam: Present: dry, intact, pallor, warm Internal Medicine: Result - Labs CBC & Chem 7: 08/14/16 04:20 08/14/16 05:04 Labs: Short CBC 08/14/16 Range/Units 04:20 WBC 7.8 (4.3-11.1) K/mcL Hgb 11.6 (11.5-15.4) g/dL Hct 36.6 (35.3-44.9) % Plt Count 194 (140-400) K/mcL Neutrophils # 4.1 (1.6-8.9) K/mcL BMP 08/14/16 05:04 Sodium 137 Potassium 3.5 Chloride 100 Carbon Dioxide 26 BUN 11 Creatinine 0.84 Glucose 112 H Calcium 9.4 - ABG Interpretation ABG results: PT/INR, D-dimer PT 11.5 Seconds (9.4-12.1) 08/12/16 17:55 Consult Discharge Plan - Plan Referrals: Laurita Sears MD [Primary Care Provider] - 08/19/16 1:30 pm
--- NOTE | 2016-08-14 10:57 | Event Note ---
Date of Encounter: 08/14/16 Time of Encounter: 11:00 - Cardiology Event Note Asked to perform pacer check. Patient due for routine check scheduled as outpatient tomorrow. Has [employer] device. Device check completed-- per [employer] and review with Dr. Durand, no significant events. Few atrial high rates-- 4 total on 07/19/16 longest 46 seconds, has known hx of PAF, not anticoagulated other than asa d/t fall hx per review of records. Next device check to be scheduled in 6 months. F/u with Cardiology as already scheduled.
[2016-08-14] MEDS: Insulin DETEMIR 100 UNIT/ML X5UNITS SQ SCH (20:14)
[2016-08-15] MEDS: *HR* Heparin 5,000 UNIT/ML VIAL SQ SCH ×4 (06:04→21:22)
[2016-08-15] MEDS: Insulin LISPRO 300 UNITS/3 ML VIAL SQ SCH ×3 (07:13→18:24)
[2016-08-15] MEDS: Aspirin 81 MG TAB.CHEW PO SCH (09:22)
[2016-08-15] MEDS: Valsartan 160 MG TABLET PO SCH (09:23)
[2016-08-15] MEDS: Lactobacillus 1 EACH CAP.SPRINK PO SCH ×2 (09:23→21:20)
[2016-08-15] MEDS: Nystatin SUSP 5 ML UD.LIQ PO SCH ×4 (09:23→21:21)
[2016-08-15] MEDS: Magnesium Oxide 400 MG TABLET PO SCH (09:23)
[2016-08-15] MEDS: Ranolazine 500 MG TAB.ER.12H PO SCH ×2 (09:24→21:20)
--- NOTE | 2016-08-15 12:55 | Internal Med Progress Note ---
Date of Encounter: 08/15/16 Time of Encounter: 09:15 - Assessment and plan (1) Encephalopathy acute Current Visit: Yes Status: Resolved Assessment and plan: Patient remains alert and oriented x3. She is no longer picking at her face and scalp. Urine culture consistent with Streptococcus sanguinis-suspect part of viridans group which would be susceptible to beta lactams. I have asked micro to perform sensitivity report given that she had a resistant infection last week of Morganella morganii. We will continue ceftriaxone and vancomycin and await sensitivities report that should be available tomorrow am. The patient and her daughter are onboard with the plan to wait for sensitivities. The daughter is concerned that her mother is now weaker than usual, so we have brought OT and PT onboard. Patient is amenable to short term ECF placement for rehab. She reiterates that she does not want to become a permanent resident until October 18. SS onboard. 08/13/16 Patient remains alert and oriented 3. She is, however, insisting that she is pulling "worms" out of her scalp and her eyebrows. There are no worms or other foreign bodies present on examination. Patient pulled out an eyebrow, then swore it was a worm. Her daughter is at the bedside and states that the patient has been picking more lately at her face and her hair. Suspect this could be secondary to the patient's ongoing urinary infection, will monitor. She is able to answer all orientation questions. Awaiting urine culture results. Preliminary culture with gram-positive cocci, continue ceftriaxone and vancomycin with sensitivities pending. Head CT negative. Abdominal CT unremarkable for acute processes. Chest x-ray negative. Unable to obtain an MRI secondary to her pacemaker. Tox screen negative. We will continue to monitor her picking and whether or not she is still seeing worms as we clear her urinary infection. ITS Impressions Chest X-Ray 08/12/16 17:05 IMPRESSION: No acute disease. Surgical changes overlying the right lung with a a rounded mass again noted in that region. These findings are stable compared prior studies D/ / Darren Reyes MD / Darren Reyes MD Interpreting Provider: Darren Reyes MD Head CT 08/12/16 17:05 IMPRESSION: 1. No acute intracranial abnormality. D/ / Nicola Sandra MD / Nicola Sandra MD Interpreting Provider: Nicola Sandra MD Abdomen/Pelvis CT 08/12/16 17:18 IMPRESSION: No acute process D/ / Darren Reyes MD / Darren Reyes MD Interpreting Provider: Darren Reyes MD (2) Generalized weakness Current Visit: Yes Status: Acute Assessment and plan: OT and PT consultations placed. (3) Picking own skin Current Visit: Yes Status: Resolved (4) UTI (urinary tract infection) Current Visit: Yes Status: Acute Assessment and plan: See prior note for acute encephalopathy Qualifiers: Urinary tract infection type: acute cystitis Hematuria presence: without hematuria Qualified Code(s): N30.00 - Acute cystitis without hematuria (5) Diabetes mellitus, type II, insulin dependent Current Visit: Yes Status: Chronic Assessment and plan: Stable. Patient no longer has issues with the timing of her insulin dosages. Continue current regimen. 08/14/16 Appears controlled with a recent A1c of 6.9%. Continue sliding scale while admitted. Of note, patient states she was upset that she received both types of insulin last night together so her at bedtime dose of lispro has been stopped. She claimed that her sugars were "bottomed out" however the lowest recorded glucose is 72 which is still normal but lower than her baseline. Patient is also insistent that she takes her insulin after her meals and this is the source of a lot of distraught for this patient so I will allow for her nursing staff to give her her insulin after her meals at the patient's request. (6) Hypertension Current Visit: Yes Status: Chronic Assessment and plan: Hypertensive upon arrival, blood pressure now controlled. We will continue to trend and adjust medications as indicated. Qualifiers: Hypertension type: essential hypertension Qualified Code(s): I10 - Essential (primary) hypertension (7) Anxiety Current Visit: No Status: Chronic (8) Lung cancer Current Visit: Yes Status: Chronic Assessment and plan: Unable to obtain MRI 2/2 pacemaker. Low suspicion for metastasis- will continue to monitor. Patient denies shortness of breath above her norm and has returned to her baseline mentation. Qualifiers: Laterality: right Lung location: unspecified part of lung Qualified Code( s): C34.91 - Malignant neoplasm of unspecified part of right bronchus or lung (9) CAD (coronary artery disease) Current Visit: Yes Status: Chronic Assessment and plan: patient denies chest pain or shortness of breath Qualifiers: Coronary Disease-Associated Artery/Lesion type: unspecified vessel or lesion type [place] vs. transplanted heart: [place] heart Associated angina: without angina Qualified Code(s): I25.10 - Atherosclerotic heart disease of [place] coronary artery without angina pectoris (10) DVT prophylaxis Current Visit: No Status: Acute Assessment and plan: Subcutaneous heparin - Subjective Interval history: Patient seen and examined. On examination, patient sitting upright in bed conversing with her daughter. Patient denies pain or shortness of breath. Her daughter is at the bedside and states that the patient has not been picking at her face and her scalp as often as she had been yesterday. Patient remains alert and oriented 3. Daughter's concern that the patient is weak after having laid in bed for several days while admitted and she is requesting for her to go to a senior living prior to going home. Patient states she is eating well but is requesting salt and caffeine stating that she is 89 years old and does not prefer to have dietary constraints. - Constitutional Vitals: Temp Pulse Resp BP Pulse Ox 98.1 F 76 18 133/73 100 08/15/16 10:54 08/15/16 10:54 08/15/16 10:54 08/15/16 10:54 08/15/16 10:54 General appearance: Present: A&O X 3, pleasant, no acute distress, answers questions appropriately - Head Head exam: Present: atraumatic, normocephalic - Eye Eye exam: Present: EOMI, PERRL, conjuntiva pink, sclera anicteric Pupils: Present: PERRL - Neck Neck exam general surgery: Present: supple, trachea midline. Absent: lymphadenopathy - Respiratory Respiratory exam: Present: decreased breath sounds. Absent: accessory muscle use, rales, respiratory distress, rhonchi, wheezes - Cardiovascular Cardiovascular exam: Present: RRR, +S1, +S2. Absent: diastolic murmur, gallop, rubs, systolic murmur - GI/Abdominal GI/Abdominal exam: Present: normal bowel sounds, soft, no peritoneal signs. Absent: distended, tenderness - Extremities Exam Extremities exam: Present: warm, radial pulses palpable and symetrical. Absent : calf tenderness, cyanotic, pedal edema - Neurological Exam Neurological exam: Present: alert, CN II-XII intact, oriented X3, no focal deficits, strengths equal and symetr throughout. Absent: pronater drift, facial droop, speech deficit - Skin Skin exam: Present: dry, intact, pallor, warm Internal Medicine: Result - Labs CBC & Chem 7: 08/14/16 04:20 08/14/16 05:04 - ABG Interpretation ABG results: PT/INR, D-dimer PT 11.5 Seconds (9.4-12.1) 08/12/16 17:55 Consult Discharge Plan - Plan Referrals: Laurita Sears MD [Primary Care Provider] - 08/19/16 1:30 pm
[2016-08-15] MEDS ORDERED: Vancomycin 1,250 MG in D5% in Water 250 ML IVPB SCH (18:00)
[2016-08-15] MEDS: Insulin DETEMIR 100 UNIT/ML X5UNITS SQ SCH (21:21)
[2016-08-16 04:57] LABS: BUN/Creatinine Ratio 17 (6-26); Blood Urea Nitrogen 16 mg/dL (7-20); Calcium 9.6 mg/dL (8.6-10.8); Carbon Dioxide 34 mEq/L (19-29); Chloride 97 mEq/L (98-109); Glucose 135 mg/dL (70-99); Osmolality,Calculated 287 (280-300); Potassium 3.6 mEq/L (3.5-4.5); Sodium 137 mEq/L (136-145); eGFR For African Americans > 60 (> 60); eGFR For Non-African Americans 56 (> 60)
[2016-08-16] MEDS: *HR* Heparin 5,000 UNIT/ML VIAL SQ SCH (06:14)
[2016-08-16] MEDS ORDERED: Cefepime HCl 2,000 MG in D5% in Water (Mini-Bag+) 100 ML IVPB SCH (08:00)
[2016-08-16] MEDS: Magnesium Oxide 400 MG TABLET PO SCH (08:01)
[2016-08-16] MEDS: Ranolazine 500 MG TAB.ER.12H PO SCH (08:01)
[2016-08-16] MEDS: Lactobacillus 1 EACH CAP.SPRINK PO SCH (08:01)
[2016-08-16] MEDS: Aspirin 81 MG TAB.CHEW PO SCH (08:02)
[2016-08-16] MEDS: Valsartan 160 MG TABLET PO SCH (08:02)
[2016-08-16] MEDS: Nystatin SUSP 5 ML UD.LIQ PO SCH ×2 (08:04→13:26)
[2016-08-16] MEDS: Insulin LISPRO 300 UNITS/3 ML VIAL SQ SCH ×2 (08:06→12:38)
--- NOTE | 2016-08-16 10:10 | Discharge Summary ---
Date of Encounter: 08/16/16 Time of Encounter: 09:00 - Discharge Diagnosis (1) Encephalopathy acute Priority: Primary Status: Resolved Comments: Patient remained alert and oriented x3 while admitted and her picking at her face and scalp improved as well. Urine culture consistent with Streptococcus sanguinis-only sensitive to Cefepime and Vanc- will send on Cefepime. Sending to inpatient rehab (2) Generalized weakness Priority: Primary Status: Acute (3) Picking own skin Priority: Primary Status: Resolved (4) UTI (urinary tract infection) Priority: Primary Status: Acute Qualifiers: Urinary tract infection type: acute cystitis Hematuria presence: without hematuria Qualified Code(s): N30.00 - Acute cystitis without hematuria (5) Diabetes mellitus, type II, insulin dependent Priority: Secondary Status: Chronic Comments: Stable. Patient prefers to have her daily dosing with meals after she eats. Controlled with a recent A1c of 6.9%. (6) Hypertension Priority: Secondary Status: Chronic Comments: Hypertensive upon arrival, blood pressure now controlled. Follow-up outpatient Qualifiers: Hypertension type: essential hypertension Qualified Code(s): I10 - Essential (primary) hypertension (7) Anxiety Priority: Secondary Status: Chronic (8) Lung cancer Priority: Secondary Status: Chronic Comments: Unable to obtain MRI 2/2 pacemaker. Low suspicion for metastasis- will continue to monitor. Patient denied shortness of breath above her norm and has returned to her baseline mentation. Qualifiers: Laterality: right Lung location: unspecified part of lung Qualified Code( s): C34.91 - Malignant neoplasm of unspecified part of right bronchus or lung (9) CAD (coronary artery disease) Priority: Secondary Status: Chronic Comments: Patient denied chest pain or shortness of breath throughout this admission. Qualifiers: Coronary Disease-Associated Artery/Lesion type: unspecified vessel or lesion type [place] vs. transplanted heart: [place] heart Associated angina: without angina Qualified Code(s): I25.10 - Atherosclerotic heart disease of [place] coronary artery without angina pectoris (10) DVT prophylaxis Priority: Primary Status: Acute Comments: Subcutaneous heparin while admitted - Discharge Medications Prescriptions: Cefepime HCl/D5w [Cefepime-Dextrose 2 gm/50 ml] 2 gm IV DAILY #10 piggyback Fluconazole [Diflucan] 150 mg PO DAILY #3 tab Lactobacillus [Culturelle] 1 each PO BID #20 cap.sprink Home Medications: Clopidogrel [Plavix] 75 mg PO DAILY 08/18/15 [History] Diltiazem [Cardizem] 60 mg PO BID 08/18/15 [History] Insulin ASPART [Novolog Flexpen] 2 - 12 unit SQ QID 08/18/15 [History] Metoprolol [Lopressor] 25 mg PO DAILY 08/18/15 [History] Nitroglycerin [Nitrostat] 0.4 mg SL AD PRN 08/18/15 [History] Olmesartan Medoxomil [Benicar] 40 mg PO DAILY 08/18/15 [History] Potassium Chloride [K-Tab ER] 20 meq PO DAILY 08/18/15 [History] Pravastatin Sodium 10 mg PO HS 08/18/15 [History] Ranolazine [Ranexa] 500 mg PO BID 08/18/15 [History] Triamterene/HCTZ 37.5/25mg [Dyazide] 1 each PO DAILY 08/18/15 [History] Albuterol Neb [Proventil Neb] 2.5 mg IH TID MDD x 5 days. No Start Date. [History] Aspirin 81 mg PO DAILY 10/10/15 [History] Docusate [Colace] 100 mg PO BID PRN 10/10/15 [History] Insulin Glargine [Lantus] 22 unit SQ HS 10/10/15 [History] Magnesium 250 mg PO DAILY 10/10/15 [History] Mupirocin [Bactroban Oint] 1 appl TP BID #1 tube 07/25/16 [Rx] Nystatin OINT [Mycostatin] 1 appl TP BID #30 g 07/25/16 [Rx] Nystatin [Nystatin Suspension] 500,000 units PO QID #120 ml 07/25/16 [Rx] Sertraline [Zoloft] 50 mg PO BID 08/12/16 [History] Cefepime HCl/D5w [Cefepime-Dextrose 2 gm/50 ml] 2 gm IV DAILY #10 piggyback [Rx] Fluconazole [Diflucan] 150 mg PO DAILY #3 tab 08/16/16 [Rx] Lactobacillus [Culturelle] 1 each PO BID #20 cap.sprink 08/16/16 [Rx] Allergies/Adverse Reactions: Allergies codeine Allergy (Verified 08/12/16 19:17) Rash adhesive tape Adverse Reaction (Verified 08/12/16 19:17) Redness of Skin budesonide [From Symbicort] Adverse Reaction (Verified 08/12/16 19:17) Shakiness Formoterol [From Symbicort] Adverse Reaction (Verified 08/12/16 19:17) Shakiness wheat Adverse Reaction (Verified 08/12/16 19:17) Blister Date of admission: 08/13/16 00:39 Primary care physician: Laurita Kathleen Consults: 08/14/16 11:31 Consult to File Clerk [CONS] Routine Reason for SW Consult: may need IV antibiotics. has HH; refuses OT or PT evaluations 08/15/16 12:52 Consult to Occupational Therapy [CONS] Routine Comment: Evaluate, develop and implement POC Reason for Consult: weak, may need ECF Consult to Physical Therapy [CONS] Routine Comment: Evaluate, develop and implement POC Reason for Consult: weak, may need ECF 08/16/16 07:52 Consult to Invasive Line Access Team [CONS] Routine Reason for Consult: IV antibiotics- cefepime daily x10 days Line Type: EPIV PICC line indications: buttermaker helper Med/Antibiotic 08/16/16 08:28 Consult to Invasive Line Access Team [CONS] Routine Reason for Consult: D/C with IV ATB Line Type: EPIV Discharging clinician: Vane Barajas Anticipated date of discharge: 08/16/16 (sending to [facility] once confirmed) - Patient Status Disposition: Transfer Inpatient Rehab Fac Condition: Fair Functional capacity at discharge: uses cane/walker Overall status at discharge: patient is progressing back to baseline - Discharge Instructions Follow Up With: Laurita Sears MD [Primary Care Provider] - 08/19/16 1:30 pm Additional Instructions: Follow-up with primary care provider as scheduled - Diet and Activity Activity: as per physical therapy, increase activity as tolerated Diet: diabetic diet, low fat, low cholesterol, low salt diet Hospital course: Ms. Gaines is a 89 year old female with past medical history of atrial fibrillation not on anticoagulation, CAD status post pacemaker, diabetes, hypertension, history of lung cancer, status post colectomy, hyperlipidemia. Patient presented to the emergency department chief complaint of confusion. Patient had been diagnosed with a urinary tract infection outpatient and was initially started on Macrobid, then changed over to Omnicef 1 culture report was available. That infection was Morganella morganii and had good sensitivity to cephalosporins. Unfortunately, patient continued to be confused prompting her presentation to the emergency department. Workup in the emergency department notable for accelerated hypertension and a urinary tract infection. She was started on ceftriaxone and admitted to the hospitalist service for further evaluation and management. Upon admission, vancomycin was added to her regimen. Throughout this for night admission, patient remained alert and oriented 3. Chest x-ray negative for acute processes. Head CT negative. Abdominal and pelvic CT negative for acute processes. Unable to obtain a brain MRI secondary to her pacemaker. Initial concern was for possible metastasis of her prior lung cancer as a possible contributing factor to her altered mental status, but this was less likely. Likely secondary to her urinary tract infection. Blood cultures negative. Tox screen negative. In the beginning of the admission, patient was continually picking at her face, her eyebrows, and her hair and continually stated she felt as if she had worms on her face and on her scalp. No worms or nits or signs of any type of parasites were noted on examination and her picking less and has her UTI was clearing. Given her history of multiple resistances with her urinary tract infections, she was kept until proper sensitivities were obtained. Urine culture was consistent with Streptococcus sanguinis whose only sensitivities are to cefepime and vancomycin ; resistant to all other medications. Patient was then transitioned over to cefepime on day of discharge. She was given a 10 day course of IV cefepime. On day of discharge, the daughter became concerned that the patient had gotten weak while admitted so OT and PT consultations were rendered and both of whom recommended ECF placement which the patient and daughter were amenable to. She was discharged to [facility] in stable condition with close outpatient follow -up highly recommended. ITS Impressions Chest X-Ray 08/12/16 17:05 IMPRESSION: No acute disease. Surgical changes overlying the right lung with a a rounded mass again noted in that region. These findings are stable compared prior studies D/ / Darren Reyes MD / Darren Reyes MD Interpreting Provider: Darren Reyes MD Head CT 08/12/16 17:05 IMPRESSION: 1. No acute intracranial abnormality. D/ / Nicola Sandra MD / Nicola Sandra MD Interpreting Provider: Nicola Sandra MD Abdomen/Pelvis CT 08/12/16 17:18 IMPRESSION: No acute process D/ / Darren Reyes MD / Darren Reyes MD Interpreting Provider: Darren Reyes MD - Time Spent with Patient Total time spent providing and/or coordinating discharge services: - Constitutional Vitals: Temp Pulse Resp BP Pulse Ox 97.8 F 77 15 159/66 99 08/16/16 07:01 08/16/16 07:01 08/16/16 07:01 08/16/16 07:01 08/16/16 08:20 General appearance: Present: A&O X 3, pleasant, no acute distress, answers questions appropriately - Head Head exam: Present: atraumatic, normocephalic - Eye Eye exam: Present: PERRL, conjuntiva pink, sclera anicteric Pupils: Present: PERRL - Neck Neck exam general surgery: Present: supple, trachea midline. Absent: lymphadenopathy - Respiratory Respiratory exam: Present: CTAB. Absent: accessory muscle use, rales, respiratory distress, rhonchi, wheezes - Cardiovascular Cardiovascular exam: Present: RRR, +S1, +S2. Absent: diastolic murmur, gallop, rubs, systolic murmur - GI/Abdominal GI/Abdominal exam: Present: normal bowel sounds, soft, no peritoneal signs. Absent: distended, tenderness - Extremities Exam Extremities exam: Present: warm, radial pulses palpable and symetrical. Absent : calf tenderness, cyanotic, pedal edema - Neurological Exam Neurological exam: Present: alert, CN II-XII intact, oriented X3, no focal deficits, strengths equal and symetr throughout. Absent: pronater drift, facial droop, speech deficit - Skin Skin exam: Present: dry, intact, normal color, warm
--- NOTE | 2016-08-16 10:34 | Physician Discharge Referral ---
ExtendedCare Referral Info Transfer To: [place] Provider in Charge: Lion Barajas CNP Provider in Charge after Transfer: PCP Institutional Level of Care: Skilled - Diagnosis (1) Encephalopathy acute Priority: Primary Status: Resolved (2) Generalized weakness Priority: Primary Status: Acute (3) Picking own skin Priority: Primary Status: Resolved (4) UTI (urinary tract infection) Priority: Primary Status: Acute (5) Diabetes mellitus, type II, insulin dependent Priority: Secondary Status: Chronic (6) Hypertension Priority: Secondary Status: Chronic (7) Anxiety Priority: Secondary Status: Chronic (8) Lung cancer Priority: Secondary Status: Chronic (9) CAD (coronary artery disease) Priority: Secondary Status: Chronic (10) DVT prophylaxis Priority: Primary Status: Acute Prognosis: Good Aware of Diagnosis: Patient, Family Aware of Prognosis: Patient, Family - Transfer Medications Prescriptions: Cefepime HCl/D5w [Cefepime-Dextrose 2 gm/50 ml] 2 gm IV DAILY #10 piggyback Fluconazole [Diflucan] 150 mg PO DAILY #3 tab Lactobacillus [Culturelle] 1 each PO BID #20 cap.sprink Home Medications: Clopidogrel [Plavix] 75 mg PO DAILY 08/18/15 [History] Diltiazem [Cardizem] 60 mg PO BID 08/18/15 [History] Insulin ASPART [Novolog Flexpen] 2 - 12 unit SQ QID 08/18/15 [History] Metoprolol [Lopressor] 25 mg PO DAILY 08/18/15 [History] Nitroglycerin [Nitrostat] 0.4 mg SL AD PRN 08/18/15 [History] Olmesartan Medoxomil [Benicar] 40 mg PO DAILY 08/18/15 [History] Potassium Chloride [K-Tab ER] 20 meq PO DAILY 08/18/15 [History] Pravastatin Sodium 10 mg PO HS 08/18/15 [History] Ranolazine [Ranexa] 500 mg PO BID 08/18/15 [History] Triamterene/HCTZ 37.5/25mg [Dyazide] 1 each PO DAILY 08/18/15 [History] Albuterol Neb [Proventil Neb] 2.5 mg IH TID MDD x 5 days. No Start Date. [History] Aspirin 81 mg PO DAILY 10/10/15 [History] Docusate [Colace] 100 mg PO BID PRN 10/10/15 [History] Insulin Glargine [Lantus] 22 unit SQ HS 10/10/15 [History] Magnesium 250 mg PO DAILY 10/10/15 [History] Mupirocin [Bactroban Oint] 1 appl TP BID #1 tube 07/25/16 [Rx] Nystatin OINT [Mycostatin] 1 appl TP BID #30 g 07/25/16 [Rx] Nystatin [Nystatin Suspension] 500,000 units PO QID #120 ml 07/25/16 [Rx] Sertraline [Zoloft] 50 mg PO BID 08/12/16 [History] Cefepime HCl/D5w [Cefepime-Dextrose 2 gm/50 ml] 2 gm IV DAILY #10 piggyback [Rx] Fluconazole [Diflucan] 150 mg PO DAILY #3 tab 08/16/16 [Rx] Lactobacillus [Culturelle] 1 each PO BID #20 cap.sprink 08/16/16 [Rx] Allergies/Adverse Reactions: Allergies codeine Allergy (Verified 08/12/16 19:17) Rash adhesive tape Adverse Reaction (Verified 08/12/16 19:17) Redness of Skin budesonide [From Symbicort] Adverse Reaction (Verified 08/12/16 19:17) Shakiness Formoterol [From Symbicort] Adverse Reaction (Verified 08/12/16 19:17) Shakiness wheat Adverse Reaction (Verified 08/12/16 19:17) Blister - Respiratory Orders Smoking Cessation: Smoking cessation has been advised. For more information, call the [place] Tobacco Quit Line at 9-945-DRII-NOW. - Ancillary Orders May use pressure relief devices daily prn, May go on JALEN w/family/respon alliance party w /meds at nurse discretion PRN, May have alcoholic beverages, May consult with Dentist, Behavioral Sciences Department Chair, Pilot Control Operator PRN - Advance Directives Living Will: Yes Power of Dispatcher Service: Yes Code Status: DNR-Arrest/Don't Intubate - Mobility Orders Ambulate (per PT) - Rehabiliation Orders Rehab Potential: Good Rehab Orders: ROM Exercises, Evaluation for Physical Therapy, Evaluation for Occupational Therapy - Treatments Skin tear care topically daily PRN per policy, May check for fecal impaction rectally daily PRN, Fleet enema rectally every other day PRN cleansing purposes List/Other: IV cefepime daily x10 days - Diet Orders Regular (patient refuses diabetic or cardiac diets) CERTIFICATION: I certify that the transfer of the above named patient to an Extended Care Facility is necessary for the continuing treatment of the diagnosis listed. The above information is true and accurate reflection of patient's current condition. Confidential - Redisclosure prohibited without a patient's written consent.
[2016-08-16 11:29] VITALS: BP 138/80
[2016-08-16] MEDS ORDERED: Aminoglycoside Consult 1 EACH MC ONE (13:34)
== END 2016-08-16 13:35 ==
LOC: EMEROO 16:51 → 3BNU 16:51 → SUATTDRO 08-13 00:39
PROVIDERS: ADMIT Internal Medicine; ATTEND Nurse Practitioner Family